=== PATIENT | female | born 1995 | race Two or more races ===

== ENCOUNTER 2019-05-26 06:29 | Day surgery (SDC) | payer OTHER ==
[~2019-05-26 06:29] MED LIST: ATENOLOL25 GM MC; FERROUS FUMARA324 MG; FOLIC ACID1 MG PO; JENTADUETO 2.51 EAC2 PO; METFORMIN HCL500 M2; NIFE60TA3 PO; NIZORAL A-D200 ML; SYNTHROID50 MCG
== END 2019-05-26 17:25 | disposition home or self-care (01) ==
LOC: CIR.AMB 06:29
DX: N84.0 Polyp of corpus uteri (principal)

== ENCOUNTER 2019-07-15 13:40 | Emergency (ER) | payer OTHER ==
[~2019-07-15] VITALS: Ht 157.5 cm; Wt 112.0 kg
== END 2019-07-15 15:36 | disposition home or self-care (01) ==
LOC: ER 13:40
DX: R51 Headache (principal)

== ENCOUNTER 2019-08-19 10:41 | Outpatient (CLI) | payer OTHER | END 2019-08-19 10:45 | disposition home or self-care (01) | LOC: RAD 10:41 | DX: K29.60 Other gastritis without bleeding (principal); M54.00 Panniculitis affecting regions of neck and back, site unspecified; G43.009 Migraine without aura, not intractable, without status migrainosus; G44.211 Episodic tension-type headache, intractable; M41.20 Other idiopathic scoliosis, site unspecified; Z87.39 Personal history of other diseases of the musculoskeletal system and connective tissue ==

== ENCOUNTER 2019-11-29 14:42 | Emergency (ER) | payer OTHER ==
[~2019-11-29] VITALS: Ht 157.5 cm; Wt 105.7 kg
[2019-11-29] MEDS ORDERED: MICROZIDE12.5 MG PO (15:29)
[2019-11-29] MEDS ORDERED: COZAAR25 MG PO (15:30)
[2019-11-29] MEDS ORDERED: JENTADUETO XR1 EAC1 PO (15:30)
[2019-11-29] MEDS ORDERED: SINGULAIR10 MG PO (15:30)
[2019-11-29] MEDS ORDERED: NEURONTIN300 MG PO (15:30)
[2019-11-29] MEDS ORDERED: NIFEDIPINE20 MG PO (15:30)
[2019-11-29] MEDS ORDERED: SYNTHROID100 MCG PO (15:31)
[2019-11-29] MEDS ORDERED: TOPROL XL25 M1 PO (15:31)
== END 2019-11-29 19:02 | disposition home or self-care (01) ==
LOC: ER 14:42
DX: N93.8 Other specified abnormal uterine and vaginal bleeding (principal)

== ENCOUNTER 2020-09-10 18:38 | Emergency (ER) | payer OTHER ==
[~2020-09-10] VITALS: Ht 157.5 cm; Wt 105.2 kg
[~2020-09-10 18:38] MED LIST changes: +COZAAR25 MG PO; +JENTADUETO XR1 EAC1 PO; +MICROZIDE12.5 MG PO; +NEURONTIN300 MG PO; +NIFEDIPINE20 MG PO; +SINGULAIR10 MG PO; +SYNTHROID100 MCG PO; +TOPROL XL25 M1 PO
[2020-09-10] MEDS ORDERED: PRENATABS FA T1 EACH PO (19:17)
[2020-09-10] MEDS ORDERED: NIFEDIPINE20 MG PO (19:17)
[2020-09-10] MEDS ORDERED: ZOFRAN8 MG PO (22:52)
== END 2020-09-10 22:58 | disposition home or self-care (01) ==
LOC: ER 18:38
DX: O34.11 Maternal care for benign tumor of corpus uteri, first trimester (principal); D25.1 Intramural leiomyoma of uterus; O20.8 Other hemorrhage in early pregnancy; Z3A.01 Less than 8 weeks gestation of pregnancy

== ENCOUNTER 2020-09-11 14:10 | Emergency (ER) | payer OTHER ==
[~2020-09-11] VITALS: Ht 157.5 cm; Wt 105.2 kg
[~2020-09-11 14:10] MED LIST changes: +PRENATABS FA T1 EACH PO; +ZOFRAN8 MG PO
== END 2020-09-11 21:15 | disposition home or self-care (01) ==
LOC: ER 14:10
DX: O03.6 Delayed or excessive hemorrhage following complete or unspecified spontaneous abortion (principal)

== ENCOUNTER 2023-12-11 09:19 | Outpatient (CLI) | payer OTHER | END 2023-12-11 09:27 | disposition home or self-care (01) | LOC: RX STUDY 09:19 | DX: N97.9 Female infertility, unspecified (principal); Z88.6 Allergy status to analgesic agent ==